=== PATIENT | female | born 1990 | race Caucasian/White ===

== ENCOUNTER 2024-05-24 13:46 | Emergency (ER) | payer OTHER, SELFPAY ==
--- NOTE | ~2024-05-24 | US_ITS ---
EXAMINATION: US venous doppler [facility] DATE: 05/24/2024 14:21 INDICATION: Left lower limb pain, swelling and erythema TECHNIQUE: Grayscale ultrasound images without and with compression and Doppler ultrasound images of the left lower extremity veins were obtained. COMPARISON: None. FINDINGS: The visualized portions of left common femoral vein, profunda (deep) femoral vein, femoral vein, popl iteal vein, peroneal veins, posterior tibial veins, gastrocnemius vein and greater saphenous vein out flow are patent. There is thrombosis of the [id number] left greater saphenous vein which is nonco mpressible with no additional internal flow on color Doppler. IMPRESSION: 1. Thrombosis of the below the knee left greater saphenous vein. No deep venous thrombosis in the lef t lower limb. Reviewed, dictated and finalized at location A. IMPRESSION: 1. Thrombosis of the below the knee left greater saphenous vein. No deep venous thrombosis in the left lower limb.
[2024-05-24 13:49] VITALS: BP 116/66; PULSE 81; RESP 18; TEMP 36.6; O2SAT 100
--- NOTE | 2024-05-24 15:03 | ED.EXTPRO ---
HPI - Extremity Problem General Chief complaint: Extremity Problem,Nontraumatic Stated complaint: R/O DVT Time Seen by Provider: 05/24/24 14:03 History of Present Illness HPI Narrative: 34-year-old female presents to the emergency department for evaluation for left lower extremity erythema. Patient was concern for a DVT. Patient denies any falls or injuries. Patient denies any IV drug use. Patient denies any associated chest pain or shortness of breath. Related Data Allergies Allergy/AdvReac Type Severity Reaction Status Date / Time latex Allergy Unknown Skin Verified 08/12/19 10:19 irritation Penicillins Allergy Unknown Rash Verified 05/24/24 14:06 BLUEBERRIES Allergy Mild Unknown Uncoded 05/24/24 14:06 PEACHES Allergy Mild Unknown Uncoded 05/24/24 14:06 Review of Systems Review of Systems: All systems reviewed & are unremarkable except as noted in HPI and below Exam Narrative: APPEARANCE: Well appearing, no pain, no distress, well-nourished. HEAD: normocephalic, atraumatic. EYES: PERRLA/EOMI, conjunctivae clear. NOSE: Normal no drainage EARS:TMS clear with good light reflex. THROAT: Pharynx clear, no exudate. NECK: Supple. No adenopathy, no masses. RESPIRATORY: Airway patent, respirations nonlabored. Clear to auscultation bilaterally, no rales, rhonchi, wheezing. CARDIOVASCULAR: Regular rate and rhythm without murmurs rubs or gallops. ABDOMINAL: Soft, nontender, nondistended, normal bowel sounds MUSCULOSKELETAL: Left lower extremity erythema and edema NEURO: Alert. Cranial nerves II through XII intact. SKIN: Warm, dry. Normal Color PSYCHIATRIC: Normal affect/mood. Course Course Emergency Course: Patient declined labs and declined treatment for the SVT. Vital Signs Vital signs: Vital Signs Temperature 97.8 F 05/24/24 13:49 Pulse Rate 81 05/24/24 13:49 Respiratory Rate 18 05/24/24 13:49 Blood Pressure 116/66 05/24/24 13:49 Pulse Oximetry 100 05/24/24 13:49 Oxygen Delivery Room Air 05/24/24 13:49 Temperature 97.8 F 05/24/24 13:49 Pulse Rate 81 05/24/24 13:49 Respiratory Rate 18 05/24/24 13:49 Blood Pressure 116/66 05/24/24 13:49 Pulse Oximetry 100 05/24/24 13:49 Oxygen Delivery Room Air 05/24/24 13:49 MDM - Extremity (Nontraumatic) MDM Narrative Medical decision making narrative: 34-year-old female presented emergency department for evaluation for possible DVT. Ultrasound shows no evidence of DVT but did show a superficial venous thrombosis. I discussed starting the patient on blood thinners and patient declined. Patient prefers to have outpatient follow-up with the medical physician. Patient was told that she will most likely need a repeat ultrasound to ensure that this is not worsening. Patient was advised to take aspirin daily. All questions concerns were addressed. Differential Diagnosis Differential diagnosis: Likely cellulitis, superficial thrombophlebitis, deep venous thrombosis of upper extremity, lower extremity edema and deep vein thrombosis of lower extremity Discharge Plan Discharge Clinical Impression: Superficial thrombophlebitis Patient Disposition: Home, Self-Care Condition: Stable Instructions: Antibiotic Form, Superficial Thrombophlebitis (ED) Additional Instructions: Daily aspirin. Warm compresses for comfort. Have close follow-up with Dr Pugh. If you have any worsening symptoms and please call or return to the emergency department. Follow-up/Referrals: PHYSICIAN,COAGULATION OPERATOR [Primary Care Provider] - Jose Pugh MD [Physician] - Stand Alone Forms: Work/School Release IP
== END 2024-05-24 15:20 | disposition home or self-care (01) ==
PROVIDERS: Emergency Provider Emergency Medicine
DX: I80.02 Phlebitis and thrombophlebitis of superficial vessels of left lower extremity (principal)
CPT/HCPCS: 93971; 99284